=== PATIENT | male | born 1990 | race Caucasian/White ===

== ENCOUNTER 2022-08-19 00:03 | Outpatient (CLI) | payer SELFPAY | END 2022-08-19 00:04 | disposition critical access hospital (66) | LOC: EMS 00:03 | DX: R11.10 Vomiting, unspecified (principal); R41.82 Altered mental status, unspecified; F11.10 Opioid abuse, uncomplicated | CPT/HCPCS: A0425; A0429 ==

== ENCOUNTER 2022-08-19 00:22 | Emergency (ER) | payer SELFPAY ==
--- NOTE | 2022-08-19 00:18 | ED Physician Documentation ---
PD HPI MHE - Stated complaint Stated Complaint: OD - History obtained from History obtained from: EMS - Additional information Additional information: Brought in by ambulance. HPI is from EMS. Patient is in obvious discomfort and despite my attempts to ascertain HPI from patient, on able to do so. When patient is not vomiting, he briefly gives unintelligible answers. Patient was checking into the [facility] stabilization center in [facility] at approximately 1120 when he exhibited rapidly declining mental status, becoming unresponsive. Staff administered intranasal Narcan, and patient reportedly and rapidly became awake, alert, angry but not violent. Review of Systems Unable to obtain: AMS PD PAST MEDICAL HISTORY - Allergies Allergies/Adverse Reactions: Allergies Allergy/AdvReac Type Severity Reaction Status Date / Time No Known Drug Allergies Allergy Verified 08/19/22 00:30 PD ED PE NORMAL - Vitals Vital signs reviewed: Yes - General General: Well developed/nourished, Other (pale, diaphoretic, no eye contact (keeps eyes closed throughout even when asked to open his eyes), frequently vomiting/"dry heaving", and clear rhinorrhea) - HEENT HEENT: Atraumatic, Moist mucous membranes - Cardiac Cardiac: No murmur - Respiratory Respiratory: No respiratory distress, Clear bilaterally - Abdomen Abdomen: Soft, Non tender PD ED PE EXPANDED - Cardiac Cardiac: Regular Rate, Tachy - Derm Derm: Pale, Diaphoretic Results - Vitals Vitals: Vital Signs - 24 hr 08/19/22 08/19/22 08/19/22 00:28 01:05 01:54 Temperature 36.7 C Heart Rate 119 H 87 107 H Respiratory 28 H 25 H 16 Rate Blood Pressure 147/99 H 150/94 H 141/96 H O2 Saturation 96 95 96 08/19/22 06:11 Temperature Heart Rate 108 H Respiratory 20 Rate Blood Pressure 121/96 H O2 Saturation 100 Oxygen O2 Source Room air - Labs Labs: Laboratory Tests 08/19/22 08/19/22 00:34 00:34 WBC 5.6 RBC 5.05 Hgb 13.9 L Hct 40.4 L MCV 80.0 MCH 27.5 MCHC 34.4 RDW 12.4 Plt Count 271 MPV 8.2 Neut # (Auto) 4.5 Lymph # (Auto) 0.7 L Kane # (Auto) 0.4 Eos # (Auto) 0.0 Baso # (Auto) 0.0 Absolute Nucleated RBC 0.00 Nucleated RBC % 0.0 Sodium 140 Potassium 3.2 L Chloride 105 Carbon Dioxide 24 Anion Gap 11.0 BUN 10 Creatinine 0.7 Estimated GFR (MDRD) 130 Glucose 119 H Calcium 10.0 Total Bilirubin 0.6 AST 31 ALT 35 Alkaline Phosphatase 79 Total Protein 8.6 H Albumin 4.9 Globulin 3.7 Albumin/Globulin Ratio 1.3 Lipase 51 PD Medical Decision Making - ED course Complexity details: considered differential, d/w patient ED course: After my initial assessment of the patient, I contacted the [facility] stabilization center. 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 The staff I spoke to did note that shortly before the patient exhibited unresponsiveness, he had been in the bathroom for a longer period of time than was expected although no direct use of drugs was witnessed. Patient arrives without intravenous access, but ED RN is able to get a left antecubital IV established through which 1 L of normal saline and 8 mg of Zofran are administered. Initially, I ordered 1 mg of lorazepam, as patient was slightly agitated, hyperkinetic, and exhibiting recurrent vomiting early in his stay. However, once the IV was established, patient already is becoming somnolent, which is likely due to the Narcan wearing off effect. Thus, I canceled the order for the lorazepam. Of note, he did not become hypopneic nor hypoxic. Reevaluated several times during ED stay. At approximately 1:30 AM, I note that patient is opening his eyes spontaneously. He is maintaining room air saturations of 95 to 100%. He is conversant, and intelligible. He is asking to be left alone so that he can sleep. At this time, I was able to examine his pupils, and they are midsize and equal bilaterally, reactive to light. Note that when I discussed this case with the [facility] staff shortly after patient arrival, they indicated to me that they can consider taking the patient back for intake, but first patient would need to be medically cleared by me, then they would need documentation of medical clearance faxed to them, and then they would need to contact the after hours practitioner for permission to accept patient to their facility. Patient is observed in the emergency department for over 8 hours. Staff at [facility] is contacted several times by myself as well as ED RN during patient's stay in order to coordinate patient's return to [facility]. I was able to medically clear the patient after few hours in the emergency department, as he had stable vital signs and exhibited gradually, steadily improving mental status. Prior to the end of my shift at 7 AM, he was awake, alert, oriented x3. [facility] is going to be able to accept this patient back to their facility at 9 AM. The plan is t o have the patient stay in the emergency department until 9 AM approaches, at which time he will be taken by taxi to [facility] (he will be provided a taxi voucher). Departure - Departure Disposition: 01 Home, Self Care Clinical Impression: Opiate withdrawal Condition: Good Instructions: ED Narcotic Abuse Comments: There were no concerning nor diagnostic findings on tonight's blood tests. Based on the description of the events from staff at [facility] as well as EMS, it sounds likely that you were suffering from the effects of narcotic overdose; Your symptoms improved dramatically when the staff at [facility] administered Narcan to you (this is a medication that reverses the effects of opioid medication such as fentanyl). It is critically important that you return to [facility] today to go through with the detox and for information regarding options for rehab for your addiction.
[~2022-08-19 00:22] MED LIST: LORazepam 2 MG/ML VIAL IVP STA; ONDANSETRON 4 MG/2 ML VIAL IVP STA; SODIUM CHLORIDE 0.9% 1,000 ML IV STA
[2022-08-19 00:39] LABS: BASOPHILS % (AUTO) 0.4 %; EOSINOPHILS % (AUTO) 0.2 %; HCT - HEMATOCRIT 40.4 % (42.0-52.0); HGB - HEMOGLOBIN 13.9 g/dL (14.0-18.0); LYMPHOCYTES # (AUTO) 0.7 10^3/uL (1.5-3.5); MEAN CORPUSCULAR HEMOGLOBIN 27.5 pg (27.0-31.0); MEAN CORPUSCULAR HGB CONC 34.4 g/dL (32.0-36.0); MEAN PLATELET VOLUME 8.2 fL (7.4-11.4); MONOCYTES # (AUTO) 0.4 10^3/uL (0.0-1.0); MONOCYTES % (AUTO) 6.8 %; NEUTROPHILS # (AUTO) 4.5 10^3/uL (1.5-6.6); NEUTROPHILS % (AUTO) 80.4 %; PLT - PLATELET COUNT 271 10^3/uL (130-450); RED BLOOD COUNT 5.05 10^6/uL (4.70-6.10); RED CELL DISTRIBUTION WIDTH 12.4 % (12.0-15.0); WHITE BLOOD COUNT 5.6 x10^3/uL (4.8-10.8)
[2022-08-19 01:17] LABS: ALBUMIN 4.9 g/dL (3.2-5.5); ALBUMIN/GLOBULIN RATIO 1.3 (1.0-2.2); BILIRUBIN,TOTAL 0.6 mg/dL (0.2-1.0); CREATININE 0.7 mg/dL (0.6-1.2); POTASSIUM 3.2 mmol/L (3.5-5.0); TOTAL PROTEIN 8.6 g/dL (6.7-8.2)
[2022-08-19 06:14] VITALS: BP 121/96
[2022-08-19] MEDS: LORazepam 1 MG TABLET PO STA ×2 (09:07→09:11)
[2022-08-19] MEDS: traZODone 50 MG TABLET PO STA ×2 (09:07→09:12)
--- NOTE | 2022-08-19 09:10 | ED Physician Documentation ---
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 He states he would rather have his father pick him up. We tried calling his father but there was no answer. The patient was seeming a little bit anxious. He is not having any shakiness or nausea. I offered medication to help with some of his symptoms, in particular likely to be starting with some withdrawal. He had had some fentanyl apparently just several hours ago so I do not know that he is ready for Suboxone yet as it may precipitate withdrawal sooner. I did offer benzodiazepine or such. He states he would take trazodone and I also offered lorazepam. These are will be given orally. At this point the patient will need to decide if he wants to just discharge and wait for his father in the waiting room or take the taxi to add to etc. Otherwise he is discharged at this time.
== END 2022-08-19 09:55 | disposition home or self-care (01) ==
LOC: ED 00:22
DX: F11.23 Opioid dependence with withdrawal (principal)
CPT/HCPCS: 36415; 80053; 83690; 85025; 96374; 99283